=== PATIENT | female | born 1970 | race Caucasian/White ===

== ENCOUNTER 2017-08-24 14:02 | Inpatient (IN) | payer OTHER ==
[~2017-08-24] VITALS: Ht 162.6 cm; Wt 62.6 kg
== END 2017-08-27 12:00 | disposition home or self-care (01) | DRG 621 ==
LOC: SURH 08-25 07:49 → O/R 08-26 06:15 → SURH 08-26 07:00
PROVIDERS: Specialist
PROC: 0J083ZZ Alteration of Abdomen Subcutaneous Tissue and Fascia, Percutaneous Approach (ICD-10-PCS; 2017-08-26)
PROC: 0J080ZZ Alteration of Abdomen Subcutaneous Tissue and Fascia, Open Approach (ICD-10-PCS; principal; 2017-08-26 07:00)
PROC: 0HBV0ZZ Excision of Bilateral Breast, Open Approach (ICD-10-PCS; 2017-08-26 07:00)
PROC: 0HRV0JZ Replacement of Bilateral Breast with Synthetic Substitute, Open Approach (ICD-10-PCS; 2017-08-26 07:00)
DX: E65 Localized adiposity (principal); N65.1 Disproportion of reconstructed breast